=== PATIENT | male | born 1985 | race Caucasian/White ===

== ENCOUNTER → 2020-09-22 11:55 | Outpatient (CLI) | payer OTHER, SELFPAY ==
--- NOTE | 2020-09-22 | DI.MRI.S_ITS ---
PROCEDURE: MR LUMBAR SPINE WO CON INDICATIONS: radiculopathy lumbar region TECHNIQUE: Noncontrast sagittal T1 spin echo and T2 fast echo, sagittal STIR, axial T1 and T2 fast spin echo through the lumbar spine. In cases with scoliosis, additional coronal T2 fast spin echo may be performed. COMPARISON: [facility], CR, XR LUMBAR SPINE WITH OLBIQUES PLUS FLEXION EXTENSION, 09/12/2020, 15:41. FINDINGS: Image quality: Excellent. Alignment and Curvature: 5 lumbar type vertebral bodies are present by plain film. Minimal grade 1 retrolisthesis L4 on L5. . Bone Marrow: Marrow is of normal overall signal. No acute vertebral body compression fractures. Minimal reactive signal within the endplates adjacent to the L4-L5 and L5-S1 intervertebral discs. Spinal Cord: Conus medullaris terminates at the L1-L2 disc space level. There is a small lipoma of the filum terminalis which does not significantly contribute to canal stenosis. Visualized cord demonstrates otherwise normal signal and size. Paraspinous Soft Tissues: No paravertebral masses. T12-L1: Normal appearance. L1-L2: Normal appearance. L2-L3: Mild facet and ligamentum flavum hypertrophy. Mild epidural lipomatosis. Mild canal stenosis. Mild bilateral foraminal stenosis. L3-L4: Mild diffuse disc bulge. Mild facet hypertrophy. Mild ligamentum flavum hypertrophy. Mild epidural lipomatosis. Mild canal stenosis. Mild to moderate bilateral foraminal stenosis. L4-L5: Mild disc desiccation and diffuse disc bulge with superimposed broad-based central protrusion. Mild facet and ligamentum flavum hypertrophy. Mild epidural lipomatosis. Mild canal stenosis. Mild to moderate bilateral foraminal stenosis. L5-S1: Moderate disc height loss and desiccation. Mild diffuse disc bulge with superimposed small central protrusion. Mild facet and ligamentum flavum hypertrophy. Mild canal stenosis. Mild to moderate bilateral foraminal stenosis. IMPRESSION: 1. Multilevel degenerative disc and facet disease, as well as ligamentum flavum hypertrophy and epidural lipomatosis. 2. Mild multilevel canal stenosis. 3. Multilevel foraminal stenosis, worst at L3-L4, L4-L5, and L5-S1, where there are mild to moderate foraminal stenosis. Dictated by: Favian Gentile M.D. on 09/22/2020 at 13:10 Approved by: Favian Gentile M.D. on 09/22/2020 at 13:14
== END ==
PROVIDERS: Referring Provider Physical Medicine & Rehabilitation Pain Medicine; Visit Provider Physical Medicine & Rehabilitation Pain Medicine
DX: M51.36 Other intervertebral disc degeneration, lumbar region (principal); M51.37 Other intervertebral disc degeneration, lumbosacral region; M48.061 Spinal stenosis, lumbar region without neurogenic claudication; M48.07 Spinal stenosis, lumbosacral region
CPT/HCPCS: 72148

== ENCOUNTER 2022-03-30 07:42 | Emergency (ER) | payer OTHER, SELFPAY ==
[2022-03-30 07:48] VITALS: BP 134/78; PULSE 77; RESP 18; TEMP 36.9; O2SAT 100
--- NOTE | 2022-03-30 08:00 | DI.RAD.S_ITS ---
PROCEDURE: XR WRIST RT MIN 3V INDICATIONS: pain TECHNIQUE: 4 views of the wrist were acquired. COMPARISON: None. FINDINGS: Bones: No fractures or dislocations. No suspicious bony lesions. Scaphoid view: No visualized fracture. Soft tissues: No suspicious soft tissue calcifications. IMPRESSION: No visualized acute fracture or dislocation. However, if clinical concern and/or pain persist, short interval imaging followup in 7-10 days is recommended, as occult injury cannot be definitively excluded. Dictated by: Jenny Aguiar M.D. on 03/30/2022 at 8:21 Approved by: Jenny Aguiar M.D. on 03/30/2022 at 8:21
--- NOTE | 2022-03-30 08:01 | ED.UPPEXIN ---
HPI - Extremity Injury (Upper) General Chief Complaint: Extremity Problem,Nontraumatic Stated Complaint: Injured right wrist last night Time Seen by Provider: 03/30/22 07:51 Source: patient Mode of arrival: Ambulatory Limitations: no limitations History of Present Illness HPI narrative: This is a 36-year-old male with no known medical issues who presents with pain of his right wrist. Patient states last night he was in the shower he was holding the shampoo bottle and shook it vigorously hit the shampoo to the opening and felt pain over the radial side of his wrist radiating towards the thumb. Patient states he has been quite active remodeling his house recently but did not recall having any particular injury or exacerbating factor. He is not had issues in this location. He states he may have broken his wrist on that side at age 14. He does not chronically have pain. He did not feel any pop snap or other sensation. He states pain has been persistent. There may have been a little tingling overnight while he was sleeping but not currently. He is normal range of motion. Patient denies any other symptoms. Denies any daily medications. No other surgeries. No known drug allergies. Related Data Home Medications Medication Instructions Recorded Confirmed No Known Home Medications 03/30/22 03/30/22 Allergies Allergy/AdvReac Type Severity Reaction Status Date / Time No Known Drug Allergies Allergy Verified 03/30/22 07:57 Review of Systems Review of Systems ROS Unobtainable: All systems reviewed & are unremarkable except as noted in HPI and below Patient History Social History Smoking Status: Current every day smoker Exam Narrative Exam Narrative: GENERAL: Alert and oriented x three, mild distress HEENT: Head normocephalic, atraumatic, EOMI, pupils reactive, face symmetric, moist mucous membranes NECK: Supple, full range of motion EXTREMITIES: Normal range of motion, no clubbing or edema. Neurovascularly intact. Patient has tenderness over the distal radius. He does have full range of motion but has increased pain with flexion extension at the wrist as well as ulnar deviation. Patient has full range of motion of all 5 fingers with no weakness. No sensation changes. 2+ radial pulse. Cap refills less than 2 seconds in all 5 fingers with no other bony tenderness. There is no ecchymosis, swelling, erythema or other skin changes noted. NEUROLOGICAL: Cranial nerves II through XII grossly intact. Moving all extremities SKIN: Warm, dry, no petechiae, no rashes or lesions. Initial Vital Signs Initial Vital Signs: Vital Signs Temperature 98.4 F 03/30/22 07:48 Pulse Rate 77 03/30/22 07:48 Respiratory Rate 18 03/30/22 07:48 Blood Pressure 134/78 03/30/22 07:48 Pulse Oximetry 100 03/30/22 07:48 Oxygen Delivery Method 03/30/22 07:48 Course Orders Ordered: ED Orders 03/30/22 08:00 XR wrist RT min 3V Stat Vital Signs Vital signs: Vital Signs - 8 hr 03/30/22 07:48 Temperature 98.4 F Pulse Rate 77 Respiratory Rate 18 Blood Pressure 134/78 Pulse Oximetry 100 Oxygen Delivery Method Room Air MDM - Extremity Injury (Upper) Imaging Data Extremity x-ray #1: Radiologist's Impression: Diagnostics Reports Thomas Rhodes??36??M??1985 ? Allergy/Adv: No Known Drug Allergies Close Wrist X-Ray (Signed) Jenny Aguiar - 03/30/22 Lumbar Spine MRI (Signed) Favian Gentile - 09/22/20 [address]?[place] [address] XRay Report Signed Patient: Thomas Rhodes MR#: [id number] : 1985 Acct:[id number] Age/Sex: 36 / M Date of Service: 03/30/22 Loc: ED Accession Number: [id number] ?? Procedure: XR wrist RT min 3V Ordering Provider: Tamra Amezquita D.O. PROCEDURE:? XR WRIST RT MIN 3V ? INDICATIONS: pain ? TECHNIQUE:? 4 views of the wrist were acquired.? ? COMPARISON:? None. ? FINDINGS:? ? Bones:? No fractures or dislocations.? No suspicious bony lesions.? ? Scaphoid view:? No visualized fracture. ? Soft tissues:? No suspicious soft tissue calcifications.? ? IMPRESSION:? No visualized acute fracture or dislocation. However, if clinical concern and/or pain persist, short interval imaging followup in 7-10 days is recommended, as occult injury cannot be definitively excluded. ? ? Dictated by: Jenny Aguiar M.D. on 03/30/2022 at 8:21 ? ? Approved by: Jenny Aguiar M.D. on 03/30/2022 at 8:21?? MDM Narrative Medical decision making narrative: This is a 36-year-old male with complaint of right wrist injury last night, patient had had a repetitive quick deviation at the joint type injury without any mechanical fall or weight-bearing injury. Patient is tender over the distal radius with increased pain with movement. Imaging shows no acute changes. Patient is otherwise neurovascularly intact. Plan for conservative measures, NSAIDs, etc.. Discharge Plan Departure Patient Disposition: Home Clinical Impression: Right wrist sprain Instructions: DI for Wrist Sprain Activity Restrictions/Additional Instructions: Follow-up for repeat imaging in 7-10 days if your symptoms are persisting and not improving. You can take ibuprofen up to 600 mg every 6 hours and/or Tylenol up to a 1000 mg every 6 hours needed for pain. You may use ice to the affected area for 10 minutes hourly as needed. You can take the splint off to shower. Splint Care: Keep splint clean and dry. Elevated affected body part to decrease swelling. OK to use ice pack on the affected body part. Use for 15-20 minutes each time, for 5-6x per day. If you develop worsening pain, numbness, tingling, discoloration of the affected body part, loosen the splint by loosening the RIDGE wrap, and either see your doctor for an urgent re-assessment, or return to the Emergency Department. Return to the Emergency Department for any new or worsening symptoms. Prescriptions: No Action No Known Home Medications Visit Report Forms: Patient Portal/API
== END 2022-03-30 08:57 | disposition home or self-care (01) ==
PROVIDERS: Emergency Provider Emergency Medicine
DX: S63.501A Unspecified sprain of right wrist, initial encounter (principal); X50.1XXA Overexertion from prolonged static or awkward postures, initial encounter
CPT/HCPCS: 73110; 99283

== ENCOUNTER 2022-09-19 10:50 | Emergency (ER) | payer OTHER, SELFPAY ==
[2022-09-19 10:58] VITALS: BP 135/59; PULSE 83; RESP 18; TEMP 37; O2SAT 99; BMI 36.3
--- NOTE | 2022-09-19 13:15 | DI.RAD.S_ITS ---
PROCEDURE: XR LUMBAR SPINE 2-3V INDICATIONS: Hx herniated disc, low back pain exacerbation bilat sciatica TECHNIQUE: 3 views of the lumbar spine were acquired. COMPARISON: None. FINDINGS: Bones: 5 [id number] vertebrae are present. There is normal bony alignment. No vertebral body compression fractures. No suspicious bony lesions. Mild disc height loss at L5-S1. Facet arthrosis L4 through S1. Soft tissues: Overlying bowel gas pattern is normal. No suspicious soft tissue calcifications. IMPRESSION: 1. No acute abnormality. 2. Mild degenerative disc disease and lower lumbar facet arthrosis. Dictated by: Erasto Dubon M.D. on 09/19/2022 at 13:58 Approved by: Erasto Dubon M.D. on 09/19/2022 at 13:59
[2022-09-19] MEDS: predniSONE 20 MG TABLET 60 MG PO (13:24)
--- NOTE | 2022-09-19 13:24 | ED.BACK ---
HPI - Back Pain/Injury <ISAAC Ortega - Last Filed: 09/19/22 14:08> General Chief Complaint: Back Pain/Injury Stated Complaint: extreme lower back pain shootinf pain in legs,hand Time Seen by Provider: 09/19/22 13:06 Source: patient History of Present Illness HPI Narrative: This is a 37-year-old male who presents to the emergency department complaining of exacerbation of his low back pain. He states that 6 years ago he herniated disc in his lower lumbar spine and has history of right-sided sciatica. States that he had a steroid injection to this area on 09/03/2022 and states that he got better for a couple of days and then 2 nights ago he had severe sciatica that started up again and it has progressed to bilateral. He denies any urinary incontinence, paresthesia his groin, weakness or motor deficit. He states that he is had ?zingers? down both of his legs and into his groin but denies any weakness or changes to his mobility. Denies recent fever chills, denies history of IV substance abuse in the past. He has follow-up scheduled with Dr. JOYNER at [facility] regarding his lower spine. States he has not had imaging of his lower spine in many years. Denies any recent trauma. Patient states that he has been using Tylenol, ibuprofen and warm compresses because he does not have any other medications for this. Related Data Previous Rx's Medication Instructions Recorded ketorolac 10 mg tablet 10 mg PO Q8H PRN pain #20 tabs 09/19/22 lidocaine 5 % topical patch 1 patch topical DAILY #15 ea 09/19/22 (Lidoderm) methocarbamol 750 mg tablet 750 mg PO Q8H PRN muscle spasms 09/19/22 #30 tabs prednisone 50 mg tablet 50 mg PO DAILY #5 tabs 09/19/22 Allergies Allergy/AdvReac Type Severity Reaction Status Date / Time No Known Drug Allergies Allergy Verified 09/19/22 11:02 Review of Systems <ISAAC Ortega - Last Filed: 09/19/22 14:08> Review of Systems ROS Unobtainable: All systems reviewed & are unremarkable except as noted in HPI and below Patient History <ISAAC Ortega - Last Filed: 09/19/22 14:08> Social History Smoking Status: Current every day smoker Smoking Status: Current every day smoker tobacco type: cigarettes alcohol intake frequency: 0-2 drinks per day Substance Use Type: does not use Exam <ISAAC Ortega - Last Filed: 09/19/22 14:08> Narrative Exam Narrative: Reviewed vitals signs and nursing notes. General: cooperative, uncomfortable, slumped to the side sitting in upright chair, afebrile, not acutely distressed, well groomed HEENT: symmetrical facial expressions, moist mucous membranes, conjunctival injection bilaterally Cardiovascular: regular rate and rhythm, no peripheral edema, warm extremities Respiratory: normal effort, able to speak in complete sentences, without wheezing, stridor, or abnormal breath sounds. No retractions or tachypnea. GI: abdomen soft, nontender to palpation, nondistended, without masses, rebound tenderness or exquisite tenderness with exam. MSK: moves all extremities, neurovascularly intact, no weakness, normal tone, normal gait without weakness, dorsiflexion and plantar extension are equal bilaterally, sensation is equal bilaterally to distal extremities, no tenderness over lumbar spine, paraspinal musculature and surrounding tissue is tender to palpation without fluctuance, erythema, or other abnormality. Skin: brisk capillary refill, without pallor or erythema, no rash Neuro: normal speech and cognition, A&O x3, ambulatory, clear speech Psych: mental status is grossly normal, congruent mood, normal affect, pleasant and cooperative Initial Vital Signs Initial Vital Signs: Vital Signs Temperature 98.6 F 09/19/22 10:58 Pulse Rate 83 09/19/22 10:58 Respiratory Rate 18 09/19/22 10:58 Blood Pressure 135/59 L 09/19/22 10:58 Pulse Oximetry 99 09/19/22 10:58 Oxygen Delivery Method 09/19/22 10:58 <Yeyo Ramirez MD - Last Filed: 09/25/22 02:05> Initial Vital Signs Initial Vital Signs: Vital Signs Temperature 98.6 F 09/19/22 10:58 Pulse Rate 83 09/19/22 10:58 Respiratory Rate 18 09/19/22 10:58 Blood Pressure 135/59 L 09/19/22 10:58 Pulse Oximetry 99 09/19/22 10:58 Oxygen Delivery Method 09/19/22 10:58 Course <ISAAC Ortega - Last Filed: 09/19/22 14:08> Orders Ordered: Discontinued Medications Ketorolac Tromethamine (Ketorolac 30 Mg/Ml Vial) 30 mg IM NOW ONE Stop: 09/19/22 13:15 Last Admin: 09/19/22 13:26 Dose: 30 mg Documented By: JESSICA Lidocaine (Lidocaine Patch 1 Each Adh..Patch) 1 each TOP NOW ONE Stop: 09/19/22 13:15 Last Admin: 09/19/22 13:26 Dose: 1 each Documented By: JESSICA Methocarbamol (Methocarbamol 500 Mg Tablet) 750 mg PO NOW ONE Stop: 09/19/22 13:15 Last Admin: 09/19/22 13:25 Dose: 750 mg Documented By: JESSICA Oxycodone/Acetaminophen (Oxycodone/Acetaminophen 5/325 Tablet) 1 tab PO NOW ONE Stop: 09/19/22 13:15 Last Admin: 09/19/22 13:26 Dose: 1 tab Documented By: JESSICA Pantoprazole Sodium (Pantoprazole Dr 20 Mg Tablet) 20 mg PO NOW ONE Stop: 09/19/22 13:15 Last Admin: 09/19/22 13:25 Dose: 20 mg Documented By: JESSICA Prednisone (Prednisone 20 Mg Tablet) 60 mg PO NOW ONE Stop: 09/19/22 13:15 Last Admin: 09/19/22 13:24 Dose: 60 mg Documented By: JESSICA Vital Signs Vital signs: Vital Signs - 8 hr 09/19/22 10:58 Temperature 98.6 F Pulse Rate 83 Respiratory Rate 18 Blood Pressure 135/59 L Pulse Oximetry 99 Oxygen Delivery Method Room Air <Yeyo Ramirez MD - Last Filed: 09/25/22 02:05> Orders Ordered: Discontinued Medications Ketorolac Tromethamine (Ketorolac 30 Mg/Ml Vial) 30 mg IM NOW ONE Stop: 09/19/22 13:15 Last Admin: 09/19/22 13:26 Dose: 30 mg Documented By: JESSICA Lidocaine (Lidocaine Patch 1 Each Adh..Patch) 1 each TOP NOW ONE Stop: 09/19/22 13:15 Last Admin: 09/19/22 13:26 Dose: 1 each Documented By: JESSICA Methocarbamol (Methocarbamol 500 Mg Tablet) 750 mg PO NOW ONE Stop: 09/19/22 13:15 Last Admin: 09/19/22 13:25 Dose: 750 mg Documented By: JESSICA Oxycodone/Acetaminophen (Oxycodone/Acetaminophen 5/325 Tablet) 1 tab PO NOW ONE Stop: 09/19/22 13:15 Last Admin: 09/19/22 13:26 Dose: 1 tab Documented By: JESSICA Pantoprazole Sodium (Pantoprazole Dr 20 Mg Tablet) 20 mg PO NOW ONE Stop: 09/19/22 13:15 Last Admin: 09/19/22 13:25 Dose: 20 mg Documented By: JESSICA Prednisone (Prednisone 20 Mg Tablet) 60 mg PO NOW ONE Stop: 09/19/22 13:15 Last Admin: 09/19/22 13:24 Dose: 60 mg Documented By: JESSICA Vital Signs Vital signs: Vital Signs - 8 hr 09/19/22 10:58 Temperature 98.6 F Pulse Rate 83 Respiratory Rate 18 Blood Pressure 135/59 L Pulse Oximetry 99 Oxygen Delivery Method Room Air [facility] - Back Pain/Injury <Josefa Alejandre [facility] - Last Filed: 09/19/22 14:08> Imaging Data lumbar xr: Radiologist's Impression: PROCEDURE:? XR LUMBAR SPINE 2-3V ? INDICATIONS:? Hx herniated disc, low back pain exacerbation bilat sciatica ? TECHNIQUE:? 3 views of the lumbar spine were acquired.? ? COMPARISON:? None. ? FINDINGS:? ? Bones:? 5 [id number] vertebrae are present.? There is normal bony alignment.? No vertebral body compression fractures.? No suspicious bony lesions.? Mild disc height loss at L5-S1.? Facet arthrosis L4 through S1. ? Soft tissues:? Overlying bowel gas pattern is normal.? No suspicious soft tissue calcifications.? ? ? IMPRESSION:? 1. No acute abnormality. 2. Mild degenerative disc disease and lower lumbar facet arthrosis. ? ? Dictated by: Erasto Dubon M.D. on 09/19/2022 at 13:58 ? ? Approved by: Erasto Dubon M.D. on 09/19/2022 at 13:59 ? [facility] Narrative Medical decision making narrative: Chief Complaint: low back pain Differential diagnosis considered include: disc injury/herniation w/radiculopathy, acute fracture, renal colic, pyelonephritis, degenerative disc disease, cauda equina, AAA, osteomyelitis, epidural abscess, degenerative arthritis, spinal stenosis, trauma, ligamental injury, paraspinal or other muscular strain, chronic pain, osteoarthritis, and critical cord compression. I have reviewed the patient's vital signs and nursing notes as well as prior records if available. Pertinent Imaging reviewed: Lumbar spine x-ray two views which shows no acute abnormality, mild DDD and lower lumbar facet arthrosis Course of care: Patient's pain was treated with Toradol IM, methocarbamol, Percocet, and prednisone with a lidocaine patch. Suspect likely musculoskeletal etiology strain/sprain,/acute exacerbation of chronic low back pain. Patient's straight leg raise test was positive. No back pain red flags on history or physical. No history of IV substance use, or bony tenderness to palpation, no trauma, no bony tenderness to palpation , afebrile, no CVAT, no urinary symptoms. No bowel or urinary incontinence or retention, no saddle anesthesia, no new/worsening distal weakness, decreased reflexes or foot drop. Pt is nontoxic appearing. Patient has soft tissue tenderness to palpation. Pt is neurovascularly intact distally, afebrile, without immunosuppression or evidence of infection, peritoneal signs, hypertensive crisis, incontinence, or menengial signs. Encourage patient to follow up with his PCP and with Dr. Joyner as scheduled for ongoing treatment regarding this low back injury. He was encouraged to follow-up and get a referral to physical therapy for another evaluation. Patient's symptoms improved over duration of stay with above-stated therapies. Social considerations that may affect disposition: none Questions are addressed and there is agreement with the plan and for follow-up. Patient is appropriate for outpatient management. MIPS: This encounter doesn't have any diagnosis' associated with MIPS criteria. Discharge Plan Departure Patient Disposition: Home Clinical Impression: Acute back pain with radiculopathy Instructions: DI for Back Pain With Sciatica Activity Restrictions/Additional Instructions: *You have been diagnosed with low back pain exacerbation with bilateral sciatica. This is typically a flare-up of the nerve root which can become down without surgery sometimes. If you are having recurrent episodes of this, it will be helpful to see the back surgeon at your appointment. Please try to avoid exacerbation of this flare by not over stretching, over working or doing a lot of upper body activities. Bedrest isn't ideal either, maintain gentle activities as best as possible. I gave you Toradol to use instead of ibuprofen until it is gone but please eat food with every dose you take and take it only every 8 hours as needed. The other medications will help the steroid and muscle relaxer relieve pain. Please use something topical, heat, and ensure that you get a referral to physical therapy outside of this as they may be able to better identify where this pain is coming from. You are evaluated in the emergency department today for back pain, your evaluation suggests no dangerous findings that require further intervention at this time. Although you will still have pain, it should start improving. Move around as tolerated but avoid heavy lifting or significant exertion. Bed rest is not recommended nor is it the best treatment for low back pain. Return to the emergency department immediately if you have new incontinence or difficulty urinating, inability to control your bowels, groin numbness, new weakness or the inability to walk, fever, or worsening symptoms. I recommend physical therapy and follow-up for any needed treatments. *What to do: *Please continue to take your regular medications as directed. [x ] New medication prescriptions sent to your pharmacy: [[facility] ] [ ] New medication written as a paper prescription [ ] No new medications given *Please follow up with your primary care provider in 2-3 days, call for an appointment. Let them know you were seen in the Emergency Department and that we asked that you be seen for follow-up. We will electronically transmit a record of today's note if your PCP is in our system *If you do not have a primary care provider please contact [phone] to establish care with one of the [facility] primary care providers. *Return to Emergency Department if you should have any new, worsening, or concerning symptoms, such as [fever greater than 101F, chills, worsening pain, persistent vomiting or other bothersome symptoms]. Prescriptions: New methocarbamol 750 mg tablet 750 mg PO Q8H PRN (Reason: muscle spasms) Qty: 30 0RF ketorolac 10 mg tablet 10 mg PO Q8H PRN (Reason: pain) Qty: 20 0RF prednisone 50 mg tablet 50 mg PO DAILY Qty: 5 0RF lidocaine [Lidoderm] 5 % adhesive patch,medicated 1 patch topical DAILY Qty: 15 0RF Rx Instructions: leave on most painful area for up to 12 hrs Referrals: [facility] [Provider Group] Tc Joyner MD [Physician] - Provider,Rochelle EARLY [Primary Care Provider] - Stand Alone Forms: Patient Portal/API <Yeyo Ramirez MD - Last Filed: 09/25/22 02:05> Cosign ED Attending Cosdeeptiature Attestation: I was immediately available in the department for consultation. ?This documentation has been reviewed and I agree with assessment and plan. Supervised by Yeyo Ramirez MD
[2022-09-19] MEDS: methocarbamoL 500 MG TABLET 750 MG PO (13:25)
[2022-09-19] MEDS: PANTOPRAZOLE DR 20 MG TABLET PO (13:25)
[2022-09-19] MEDS: LIDOCAINE PATCH 1 EACH ADH..PATCH TOP (13:26)
[2022-09-19] MEDS: OXYCODONE/ACETAMINOPHEN 5/325 TABLET 1 TAB PO (13:26)
[2022-09-19] MEDS: KETOROLAC 30 MG/ML VIAL IM (13:26)
[2022-09-19 14:11] VITALS: BP 135/81; PULSE 69; RESP 16; O2SAT 97
== END 2022-09-19 14:07 | disposition home or self-care (01) ==
PROVIDERS: Emergency Provider Nurse Practitioner Critical Care Medicine
DX: M54.16 Radiculopathy, lumbar region (principal)
CPT/HCPCS: 72100; 96372; 99283; J1885

== ENCOUNTER → 2022-10-07 15:03 | Outpatient (CLI) | payer OTHER, SELFPAY ==
--- NOTE | 2022-10-07 15:39 | DI.MRI.S_ITS ---
PROCEDURE: MR LUMBAR SPINE WO CON INDICATIONS: Radiculopathy, lumbosacral region TECHNIQUE: Noncontrast sagittal T1 spin echo and T2 fast echo, sagittal STIR, and T2 fast spin echo through the lumbar spine. In cases with scoliosis, additional coronal T2 fast spin echo may be performed. COMPARISON: [facility], , MR LUMBAR SPINE WO CON, 09/22/2020, 12:24. FINDINGS: Image quality: Excellent. Alignment and Curvature: There is normal bony alignment. Bone Marrow: Marrow is of normal overall signal. No acute vertebral body compression fractures. Spinal Cord: Conus medullaris terminates at the L1-L2 level. Visualized cord demonstrates normal signal and size. Paraspinous Soft Tissues: No paravertebral masses. T12-L1: Normal appearance. L1-L2: Normal appearance. L2-L3: Mild facet hypertrophy. No significant canal stenosis or foraminal stenosis. L3-L4: Unchanged findings. Mild disc bulge and mild facet hypertrophy. Mild canal stenosis. Bilateral mild to moderate foraminal stenosis. L4-L5: Unchanged findings. Annulus tear plus mild diffuse disc bulge with mild superimposed central posterior disc protrusion. Mild facet and ligament hypertrophy. Mild canal stenosis. Jpoo-[id number] bilateral foraminal stenosis. L5-S1: Unchanged findings. Annulus tear plus mild central posterior disc protrusion. No canal stenosis. Facet hypertrophy. Mild bilateral foraminal stenosis. IMPRESSION: 1. Stable findings. 2. Multilevel facet arthropathy. 3. There is mild canal stenosis at L3-L4 and L4-L5. 4. Annulus tears plus mild disc protrusions at L4-L5 and L5-S1. Dictated by: Matias Bustillo M.D. on 10/08/2022 at 9:04 Approved by: Matias Bustillo M.D. on 10/08/2022 at 9:11
== END ==
PROVIDERS: Referring Provider Orthopaedic Surgery Orthopaedic Surgery of the Spine; Visit Provider Orthopaedic Surgery Orthopaedic Surgery of the Spine
DX: M47.26 Other spondylosis with radiculopathy, lumbar region (principal); M47.27 Other spondylosis with radiculopathy, lumbosacral region; M48.061 Spinal stenosis, lumbar region without neurogenic claudication; M48.07 Spinal stenosis, lumbosacral region; M51.16 Intervertebral disc disorders with radiculopathy, lumbar region; M51.17 Intervertebral disc disorders with radiculopathy, lumbosacral region
CPT/HCPCS: 72148

== ENCOUNTER 2023-03-26 17:42 | Emergency (ER) | payer OTHER, SELFPAY ==
[2023-03-26 17:55] VITALS: BP 122/82; PULSE 92; RESP 15; TEMP 36.8; O2SAT 96; BMI 36.9
--- NOTE | 2023-03-26 20:32 | PC.NURSE ---
Addendum entered by Sheri Toscano R.N. 03/26/23 20:36: Reports redness around the bite/sting area has gotten better, but pain is increasing. Original Note: Bit/or stung by something when he was opening an awning at 1700 today. [place] it, then smashed it, and was unable to determine what it actually was. Whole left arm throbbing and stabbing pains Intermittent headache, fatigue and nausea. Initially had elbow pain that has now resolved.
[2023-03-26] MEDS: ONDANSETRON 4 MG ODT SL (21:16)
[2023-03-26] MEDS: ACETAMINOPHEN 325 MG TABLET 975 MG PO (21:16)
--- NOTE | 2023-03-26 21:19 | ED.SKABFB ---
HPI - Skin/Abscess/Foreign Bdy General Chief complaint: Skin/Abscess/Foreign Body Stated complaint: bit by something, not feeling well Time Seen by Provider: 03/26/23 20:34 Source: patient Mode of arrival: Ambulatory Limitations: no limitations History of Present Illness HPI narrative: Patient is a 37-year-old male here for evaluation of some sort of a insect sting to his left upper arm. He states he felt something either sting or bite him. He states that he killed the insect but he can not identify what it was. He is never had a reaction in the past. He initially stated them there was quite a bit of redness and swelling around the area and now he generally has fatigue and pain in his left arm. He has not taken anything for the symptoms prior to arrival Related Data Previous Rx's Medication Instructions Recorded ketorolac 10 mg tablet 10 mg PO Q8H PRN pain #20 tabs 09/19/22 lidocaine 5 % topical patch 1 patch topical DAILY #15 ea 09/19/22 (Lidoderm) methocarbamol 750 mg tablet 750 mg PO Q8H PRN muscle spasms 09/19/22 #30 tabs prednisone 50 mg tablet 50 mg PO DAILY #5 tabs 09/19/22 Allergies Allergy/AdvReac Type Severity Reaction Status Date / Time No Known Drug Allergies Allergy Verified 03/26/23 17:55 Review of Systems Constitutional Constitutional: Reports system reviewed and no additional complaints, except as documented Musculoskeletal Musculoskeletal: Reports system reviewed and no additional complaints, except as documented Integumentary/Breasts Skin/Breast: Reports system reviewed and no additional complaints, except as documented Allergic/Immunologic Allergic/Immunologic: Reports system reviewed and no additional complaints, except as documented Patient History Social History Smoking Status: Current every day smoker Smoking Status: Current every day smoker tobacco type: vaping alcohol intake frequency: 0-2 drinks per day Substance Use Type: does not use Exam Initial Vital Signs Initial Vital Signs: Vital Signs Temperature 98.2 F 03/26/23 17:55 Pulse Rate 92 H 03/26/23 17:55 Respiratory Rate 15 03/26/23 17:55 Blood Pressure 122/82 03/26/23 17:55 Pulse Oximetry 96 03/26/23 17:55 Oxygen Delivery Method Room Air 03/26/23 17:55 Const General: cooperative, comfortable and No ill appearing [facility] Head: normal to inspection and normocephalic Resp Effort & Inspection: normal respiratory effort Auscultation: clear to auscultation bilaterally Cardio Rate: regular rate Rhythm: regular rhythm Skin Other: Patient has a punctate area of redness on the inner upper portion of his left arm. There is no surrounding erythema. Neuro General: patient alert, patient awake and moves all extremities Extrem General: normal to inspection and capillary refill normal Course Orders Ordered: Discontinued Medications Acetaminophen (Acetaminophen 325 Mg Tablet) 975 mg PO NOW ONE Stop: 03/26/23 21:12 Last Admin: 03/26/23 21:16 Dose: 975 mg Documented By: CAROLINA Diphenhydramine HCl (Diphenhydramine 25 Mg Tablet) 25 mg PO NOW ONE Stop: 03/26/23 21:20 Last Admin: 03/26/23 21:26 Dose: 25 mg Documented By: CAROLINA Ondansetron HCl (Ondansetron 4 Mg Odt) 4 mg SL NOW ONE Stop: 03/26/23 21:12 Last Admin: 03/26/23 21:16 Dose: 4 mg Documented By: CAROLINA Ondansetron HCl (Ondansetron 4 Mg Odt Prepack) 1 bottle MISC SEEINSTR ONE Stop: 03/26/23 21:22 Last Admin: 03/26/23 21:26 Dose: 1 bottle Documented By: CAROLINA Vital Signs Vital signs: Vital Signs - 8 hr 03/26/23 21:27 Pulse Rate 67 Respiratory Rate 16 Blood Pressure 123/79 Pulse Oximetry 98 Oxygen Delivery Method Room Air MDM - Skin/Abscess/Foreign Bdy MDM Narrative Medical decision making narrative: Patient has no redness in the left upper arm. There is a punctate area in the left upper arm most likely from some sort of an insect sting. No problems breathing. Patient is not having an anaphylactic reaction. He is neurovascularly intact in his left upper extremity was given a dose of Benadryl. Will discharge home with strict return precautions. Discharge Plan Departure Patient Disposition: Home Clinical Impression: Bug bite Instructions: Insect Bites and Stings Activity Restrictions/Additional Instructions: You can take Tylenol for any discomfort. I also recommend putting ice over the area. You can do 25 mg of Benadryl every 4-6 hours as needed. Use the nausea medication as needed as well. Prescriptions: No Action methocarbamol 750 mg tablet 750 mg PO Q8H PRN (Reason: muscle spasms) Qty: 30 0RF ketorolac 10 mg tablet 10 mg PO Q8H PRN (Reason: pain) Qty: 20 0RF prednisone 50 mg tablet 50 mg PO DAILY Qty: 5 0RF lidocaine [Lidoderm] 5 % adhesive patch,medicated 1 patch topical DAILY Qty: 15 0RF Rx Instructions: leave on most painful area for up to 12 hrs Referrals: ProviderRochelle [Primary Care Provider] - Stand Alone Forms: Patient Portal/API
[2023-03-26] MEDS: diphenhydrAMINE 25 MG TABLET PO (21:26)
[2023-03-26] MEDS: ONDANSETRON 4 MG ODT PREPACK 1 BOTTLE MISC (21:26)
[2023-03-26 21:27] VITALS: BP 123/79; PULSE 67; RESP 16; O2SAT 98
== END 2023-03-26 21:31 | disposition home or self-care (01) ==
PROVIDERS: Emergency Provider Emergency Medicine
DX: S40.862A Insect bite (nonvenomous) of left upper arm, initial encounter (principal)
CPT/HCPCS: 99283

== ENCOUNTER 2024-07-13 14:12 | Emergency (ER) | payer OTHER, SELFPAY ==
[2024-07-13 14:26] VITALS: BP 116/85; PULSE 94; RESP 16; TEMP 36.8; O2SAT 97; BMI 36.9
--- NOTE | 2024-07-13 15:22 | ED_ITS ---
HPI - Ear Problem <Abraham Jasmine PA-C - Last Filed: 07/13/24 15:42> General Chief complaint: Ear Stated complaint: hot metal in ear Time Seen by Provider: 07/13/24 15:01 Source: patient Mode of arrival: Ambulatory History of Present Illness HPI Narrative: 38-year-old male presents to the ED with 2 days of left-sided ear pain. Patient states that he was working with hot metal (steel), when he felt a small piece of the metal go into his left ear. Since then, patient is endorsing left ear pain. Patient was seen by his PCP earlier today, sent to the ED for further evaluation. No changes in hearing. No lightheadedness, dizziness, nausea, vomiting. Related Data Previous Rx's Medication Instructions Recorded ketorolac 10 mg tablet 10 mg PO Q8H PRN pain #20 tabs 09/19/22 lidocaine 5 % topical patch 1 patch topical DAILY #15 ea 09/19/22 (Lidoderm) methocarbamol 750 mg tablet 750 mg PO Q8H PRN muscle spasms 09/19/22 #30 tabs prednisone 50 mg tablet 50 mg PO DAILY #5 tabs 09/19/22 ciprofloxacin HCl 0.2 % ear drops 4 drp EAR-LEFT BID 7 days #14 ea 07/13/24 in a dropperette Allergies Allergy/AdvReac Type Severity Reaction Status Date / Time No Known Drug Allergies Allergy Verified 07/13/24 14:31 Review of Systems <Abraham Jasmine PA-C - Last Filed: 07/13/24 15:42> Constitutional Constitutional: Denies chills, Denies fatigue, Denies fever(s), Denies frequent falls, Denies lethargy and Denies weakness Eyes Eyes: Denies change in vision, Denies eye discharge, Denies irritation and Denies loss of vision ENT Ears, Nose, Mouth, and Throat: Denies change in voice, Denies dizziness, Reports otalgia, Denies neck pain, Denies sore throat and Denies throat swelling Cardiovascular Cardiovascular: Denies chest pain, Denies irregular heart rhythm, Denies lightheadedness, Denies palpitations, Denies dyspnea, Denies dyspnea on exertion and Denies orthopnea Respiratory Respiratory: Denies cough, Denies dyspnea, Denies dyspnea on exertion and Denies wheezing Gastrointestinal Gastrointestinal: Denies abdominal pain, Denies change in bowel habits, Denies diarrhea, Denies nausea and Denies vomiting Musculoskeletal Musculoskeletal: Denies neck pain and Denies numbness Integumentary/Breasts Skin/Breast: Denies pruritus, Denies erythema, Denies rash and Denies wounds Neurologic Neurologic: Denies behavioral changes, Denies confusion, Denies dizziness, Denies frequent falls, Denies loss of vision, Denies numbness and Denies weakness Psychiatric Psychiatric: Denies anxiety, Denies behavioral changes, Denies confusion, Denies depression, Denies homicidal ideation and Denies suicidal ideation Endocrine Endocrine: Denies fatigue, Denies flushing and Denies palpitations Hematologic/Lymphatic Hematologic/Lymphatic: Denies easy bruising Allergic/Immunologic Allergic/Immunologic: Denies urticaria, Denies throat swelling and Denies wheezing Patient History <Abraham Jasmine PA-C - Last Filed: 07/13/24 15:42> Social History Smoking Status: Current every day smoker Smoking Status: Current every day smoker tobacco type: vaping alcohol intake frequency: 0-2 drinks per day Exam <Abraham Jasmine PA-C - Last Filed: 07/13/24 15:42> Narrative Exam Narrative: Const General:?cooperative, healthy appearing and comfortable [facility] Head:?normal to inspection Ears:?hearing grossly normal bilaterally; bilateral tympani normal an intact; left ear canal shows some erythema, possibly a burn. No foreign objects noted on exam Nose:?external nose normal Face and sinus:?normal facial exam and sinuses nontender Mouth:?oral mucosae normal Throat:?posterior oropharynx normal Eyes General:?appearance normal, both eyes and all related structures Neck Neck:?normal visual inspection and no lymphadenopathy noted Resp Effort & Inspection:?normal respiratory effort Auscultation:?clear to auscultation bilaterally Cardio Rate:?regular rate Rhythm:?regular rhythm Neuro General:?patient alert, patient awake and patient oriented x3 Initial Vital Signs Initial Vital Signs: Vital Signs Temperature 98.3 F 07/13/24 14:26 Pulse Rate 94 H 07/13/24 14:26 Respiratory Rate 16 07/13/24 14:26 Blood Pressure 116/85 07/13/24 14:26 Pulse Oximetry 97 07/13/24 14:26 Oxygen Delivery Method Room Air 07/13/24 14:26 <Que Bridges DO - Last Filed: 07/13/24 15:44> Initial Vital Signs Initial Vital Signs: Vital Signs Temperature 98.3 F 07/13/24 14:26 Pulse Rate 94 H 07/13/24 14:26 Respiratory Rate 16 07/13/24 14:26 Blood Pressure 116/85 07/13/24 14:26 Pulse Oximetry 97 07/13/24 14:26 Oxygen Delivery Method Room Air 07/13/24 14:26 Course <Abraham Jasmine PA-C - Last Filed: 07/13/24 15:42> Vital Signs Vital signs: Vital Signs - 8 hr 07/13/24 14:26 07/13/24 15:23 Temperature 98.3 F 98.4 F Pulse Rate 94 H 76 Respiratory Rate 16 18 Blood Pressure 116/85 121/72 Pulse Oximetry 97 99 Oxygen Delivery Method Room Air Room Air <Que Bridges DO - Last Filed: 07/13/24 15:44> Vital Signs Vital signs: Vital Signs - 8 hr 07/13/24 14:26 07/13/24 15:23 Temperature 98.3 F 98.4 F Pulse Rate 94 H 76 Respiratory Rate 16 18 Blood Pressure 116/85 121/72 Pulse Oximetry 97 99 Oxygen Delivery Method Room Air Room Air Medical Decision Making <Abraham Jasmine PA-C - Last Filed: 07/13/24 15:42> MDM Narrative Medical decision making narrative: 38-year-old male presents to the ED with 2 days of left-sided ear pain. Physical exam is reassuring for an intact tympanum. There is some erythema of the external ear canal, likely a burn injury from the hot steel. No foreign object noted in the ear. Will prescribe Ciprodex to aid healing and prevent infection. Recommend patient follow-up with ENT as soon as possible. ED return precautions discussed with patient. Patient verbalized understanding. Medical records reviewed: Yes Discharge Plan Departure Patient Disposition: Home Clinical Impression: Injury of ear canal Qualifiers: Encounter type: initial encounter Qualified Code(s): S09.91XA - Unspecified injury of ear, initial encounter Instructions: How to Instill Ear Drops Activity Restrictions/Additional Instructions: You were evaluated in the ED today for a left ear injury. Your symptoms are most likely from the hot steel causing a small burn in your left ear canal. You are being prescribed antibiotic drops to aid in healing and avoid an infection. Please follow-up with [facility] by calling [phone]. Return to the ED if you have worsening symptoms. Prescriptions: New ciprofloxacin HCl 0.2 % dropperette 4 drp EAR-LEFT BID 7 Days Qty: 14 0RF No Action methocarbamol 750 mg tablet 750 mg PO Q8H PRN (Reason: muscle spasms) Qty: 30 0RF ketorolac 10 mg tablet 10 mg PO Q8H PRN (Reason: pain) Qty: 20 0RF prednisone 50 mg tablet 50 mg PO DAILY Qty: 5 0RF lidocaine [Lidoderm] 5 % adhesive patch,medicated 1 patch topical DAILY Qty: 15 0RF Rx Instructions: leave on most painful area for up to 12 hrs Referrals: ProviderRochelle [Primary Care Provider] - Stand Alone Forms: Patient Portal/API/Survey ED Sign-out <Que Bridges, - Last Filed: 07/13/24 15:44> Cosign ED Attending Cosignature Attestation: Dr Bridges Co-Sign Statement: I was available for consultation during this patient's emergency department visit. This chart is signed by myself for admi nistrative purposes only. I did not have direct contact with this patient during this visit. They were seen independently by the APC.
[2024-07-13 15:23] VITALS: BP 121/72; PULSE 76; RESP 18; TEMP 36.9; O2SAT 99
== END 2024-07-13 15:24 | disposition home or self-care (01) ==
PROVIDERS: Emergency Provider Student in an Organized Health Care Education/Training Program
DX: S09.91XA Unspecified injury of ear, initial encounter (principal); X58.XXXA Exposure to other specified factors, initial encounter
CPT/HCPCS: 99281

== ENCOUNTER → 2025-03-10 14:59 | Outpatient (CLI) | payer OTHER, SELFPAY ==
[2025-03-10 15:33] LABS: Semen Sperm Prescence Post-Vas Absent (ABSENT)
== END ==
PROVIDERS: Referring Provider Urology; Visit Provider Urology
DX: Z98.52 Vasectomy status (principal)
CPT/HCPCS: 89321